=== PATIENT | female | born 2005 | race Hispanic/Latino ===

== ENCOUNTER 2025-06-30 13:06 | Emergency (ER) | payer SELFPAY ==
[2025-06-30 13:13] VITALS: BP 130/82
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
--- NOTE | 2025-06-30 16:44 | EDRN ---
Pt in room w/ therapist and caregiver at this time. pt appears comfortable on stretcher. Pt is awaiting [facility] and a test center manager.
[2025-06-30 18:00] VITALS: BP 127/79
[2025-07-01] MEDS: VIBRAMYCIN 100 MG PO (01:03)
[2025-07-01] MEDS: ISENTRESS 400 MG PO (01:09)
[2025-07-01] MEDS: TRUVADA TABLET 1 TABLET PO (01:10)
[2025-07-01] MEDS: FLAGYL 500 MG PO (01:10)
[2025-07-01] MEDS: PLAN B ONE-STEP, NEXT CHOICE 1 TABLET PO (01:11)
[2025-07-01 01:23] VITALS: BP 126/85
[2025-07-01] MEDS: ROCEPHIN 1.4286 MG IM (01:35)
[2025-07-01 01:47] LABS: HCG, Serum Qualitative Screen Negative
[2025-07-01 01:51] LABS: ALT (SGPT) 21 U/L (0-35); AST (SGOT) 22 U/L (14-36); Albumin 5.1 g/dl (3.5-5.0); Alkaline Phosphatase 78 U/L (38-126); Blood Urea Nitrogen 10 mg/dl (7-17); Calcium 9.7 mg/dl (8.4-10.2); Carbon Dioxide 17 mmol/L (22-30); Chloride 108 mmol/L (98-107); Glucose 158 mg/dl (70-99); Potassium 3.8 mmol/L (3.5-5.1); Sodium 140 mmol/L (135-145); Total Protein 8.6 g/dl (6.3-8.2); eGFR > 60.00
[2025-07-01 05:00] LABS: Hepatitis B Surface Antigen Negative (Negative)
[2025-07-01 05:18] LABS: Hepatitis C Antibody Negative (Negative)
== END 2025-07-01 01:49 | disposition home or self-care (01) ==
LOC: EMR 13:06
PROVIDERS: Emergency Medicine; EMERGENCY PHYSICIAN Student in an Organized Health Care Education/Training Program
DX: T74.21XA Adult sexual abuse, confirmed, initial encounter (principal); Y92.9 Unspecified place or not applicable; R41.89 Other symptoms and signs involving cognitive functions and awareness
CPT/HCPCS: 99283; 96372; 80053; 84703; 86705; 86706; 86803; 87340; 87389